=== PATIENT | female | born 1950 | race Two or more races ===

== ENCOUNTER 2017-07-30 16:24 | Emergency (ER) | payer OTHER ==
[~2017-07-30] VITALS: Ht 162.6 cm; Wt 70.3 kg
[~2017-07-30 16:24] MED LIST: ASA81 MG; CIPRO500 MG PO; CLONAZEPAM1 MG/TAB; COZAAR50 MG; FLAGYL500MG PO; LEVSIN/SL0.125 MG PO; LEVSIN/SL0.125 MG SL; LYRICA200 MG; MULTI VITAMIN1 EACH; PLAQUENIL; PRENISONA; PROTONIX40 MG PO; SYNTHROID100 MCG; ZOCOR40 MG
== END 2017-07-30 22:48 | disposition home or self-care (01) ==
LOC: ER 16:24
DX: K58.8 Other irritable bowel syndrome (principal); K57.30 Diverticulosis of large intestine without perforation or abscess without bleeding; K80.20 Calculus of gallbladder without cholecystitis without obstruction

== ENCOUNTER 2018-10-25 19:46 | Emergency (ER) | payer OTHER ==
[~2018-10-25] VITALS: Ht 162.6 cm; Wt 72.1 kg
[2018-10-25] MEDS ORDERED: LOSARTAN-HCTZ1 EAC2 (19:59)
[2018-10-25] MEDS ORDERED: SIMVASTATIN20 MG (19:59)
[2018-10-25] MEDS ORDERED: SIMBALTA (19:59)
[2018-10-25] MEDS ORDERED: SYNTHROID88 MCG (20:00)
== END 2018-10-25 23:10 | disposition home or self-care (01) ==
LOC: ER 19:46
DX: J45.901 Unspecified asthma with (acute) exacerbation (principal)

== ENCOUNTER 2019-01-30 05:54 | Day surgery (SDC) | payer OTHER ==
[~2019-01-30 05:54] MED LIST changes: +LOSARTAN-HCTZ1 EAC2; +SIMBALTA; +SIMVASTATIN20 MG; +SYNTHROID88 MCG
== END 2019-01-30 11:55 | disposition home or self-care (01) ==
LOC: AMB-ENDOS 05:54
DX: K57.30 Diverticulosis of large intestine without perforation or abscess without bleeding (principal); Z12.11 Encounter for screening for malignant neoplasm of colon; K63.89 Other specified diseases of intestine

== ENCOUNTER → 2019-04-27 | Emergency (ER) | payer OTHER ==
[~2019-04-27] VITALS: Ht 157.5 cm; Wt 65.8 kg
== END | disposition left against medical advice (07) ==
LOC: ER 19:16
DX: Z53.20 Procedure and treatment not carried out because of patient's decision for unspecified reasons (principal)

== ENCOUNTER 2019-10-29 23:41 | Emergency (ER) | payer OTHER ==
[~2019-10-29] VITALS: Ht 162.6 cm; Wt 70.3 kg
[2019-10-30] MEDS ORDERED: MOBIC15 MG PO (01:43)
[2019-10-30] MEDS ORDERED: ORPHENADRINE C100 MG PO (01:43)
[2019-10-31] MEDS ORDERED: KETO10TA2 PO (13:20)
[2019-10-31] MEDS ORDERED: ACYCLOVIR800 MG PO (13:20)
[2019-10-31] MEDS ORDERED: NEURONTIN300 MG PO (13:21)
== END 2019-10-30 02:18 | disposition home or self-care (01) ==
LOC: ER 23:41
DX: M54.5 Low back pain (principal)

== ENCOUNTER 2019-10-31 11:55 | Emergency (ER) | payer OTHER ==
[~2019-10-31] VITALS: Ht 157.5 cm; Wt 70.3 kg
[~2019-10-31 11:55] MED LIST changes: +MOBIC15 MG PO; +ORPHENADRINE C100 MG PO
[2019-10-31] MEDS ORDERED: ACYCLOVIR800 MG PO (13:20)
[2019-10-31] MEDS ORDERED: KETO10TA2 PO (13:20)
[2019-10-31] MEDS ORDERED: NEURONTIN300 MG PO (13:21)
== END 2019-10-31 13:43 | disposition home or self-care (01) ==
LOC: ER 11:55
DX: B02.8 Zoster with other complications (principal)

== ENCOUNTER 2020-03-24 06:00 | Day surgery (SDC) | payer OTHER ==
[~2020-03-24 06:00] MED LIST changes: +ACYCLOVIR800 MG PO; +ADULT LOW DOSE81 M1 PO; +CALCI; +CENTRU PO; +CYMBALTA60 MG PO; +DIOVAN320 MG; +FOLIC ACID PO; +KETO10TA2 PO; +METOTREXATE PO; +NEURONTIN300 MG PO; +SINGULAIR10 MG PO; +SYNTHROID88 MCG PO; +VALSAR PO; +ZOCOR20 MG PO
[2020-03-24] MEDS ORDERED: ULTRAM50 MG PO (10:43)
== END 2020-03-24 12:40 | disposition home or self-care (01) ==
LOC: CIR.AMB 06:00
PROVIDERS: ATTEND Surgery
DX: R15.9 Full incontinence of feces (principal); Z20.828 Contact with and (suspected) exposure to other viral communicable diseases
CPT/HCPCS: 64590; 64581; 95972; C1778; L8679

== ENCOUNTER 2020-08-06 13:53 | Inpatient (IN) | payer OTHER ==
[~2020-08-06] VITALS: Ht 162.6 cm; Wt 73.5 kg
[~2020-08-06 13:53] MED LIST changes: +ULTRAM50 MG PO
[2020-08-06] MEDS ORDERED: IRON325 MG (14:02)
[2020-08-09] MEDS ORDERED: FOLIC ACID1 MG (10:58)
[2020-08-09] MEDS ORDERED: LUMIGAN2.5 M1 (10:59)
[2020-08-09] MEDS ORDERED: PREDNISOLONE ACE5 ML (10:59)
[2020-08-09] MEDS ORDERED: REFRESH LIQUIGE15 ML (10:59)
[2020-08-09] MEDS ORDERED: SIMBRINZA 1%-0.28 ML (10:59)
[2020-08-09] MEDS ORDERED: FERROUS GLUCON240 MG (11:00)
[2020-08-09] MEDS ORDERED: PROTECT PLUS S1 EACH (11:00)
[2020-08-09] MEDS ORDERED: RESTASIS1 EACH (11:00)
[2020-08-09] MEDS ORDERED: VALSARTAN-HCTZ1 EAC3 (11:00)
[2020-08-09] MEDS ORDERED: HYDROXYCHLOROQ200 MG (11:00)
[2020-08-09] MEDS ORDERED: TIZANIDINE HCL4 M1 (11:01)
[2020-08-09] MEDS ORDERED: CENTRUM SILVER1 EAC3 (11:01)
[2020-08-09] MEDS ORDERED: [UNRECOGNIZED DRUG - OTHER] (11:01)
[2020-08-09] MEDS ORDERED: CALCIUM500 M1 (11:04)
[2020-08-09] MEDS ORDERED: METHOTREXATE2.5 MG (11:04)
[2020-08-09] MEDS ORDERED: METHOTREXA25 MG/1 M5 (11:05)
[2020-08-15] MEDS ORDERED: GABAPENTIN400 MG PO (10:31)
[2020-08-15] MEDS ORDERED: XOPENEX0.63 MG/3 IH (10:31)
== END 2020-08-15 10:53 | disposition home or self-care (01) | DRG 418 ==
LOC: ER 13:53 → SEC-K 23:52 → MEDJ 23:52 → SURG 23:52 → MEDJ 08-09 13:20
PROVIDERS: Surgery; ADMIT Internal Medicine; ATTEND Internal Medicine
PROC: BW40ZZZ Ultrasonography of Abdomen (ICD-10-PCS; 2020-08-06)
PROC: BW2110Z Computerized Tomography (CT Scan) of Abdomen and Pelvis using Low Osmolar Contrast, Unenhanced and Enhanced (ICD-10-PCS; 2020-08-07)
PROC: 02HV33Z Insertion of Infusion Device into Superior Vena Cava, Percutaneous Approach (ICD-10-PCS; 2020-08-08)
PROC: 3E0F7GC Introduction of Other Therapeutic Substance into Respiratory Tract, Via Natural or Artificial Opening (ICD-10-PCS; 2020-08-14)
PROC: 0FT44ZZ Resection of Gallbladder, Percutaneous Endoscopic Approach (ICD-10-PCS; principal; 2020-08-14 07:00)
DX: K80.10 Calculus of gallbladder with chronic cholecystitis without obstruction (principal); N39.0 Urinary tract infection, site not specified; K57.30 Diverticulosis of large intestine without perforation or abscess without bleeding; I10 Essential (primary) hypertension; G47.33 Obstructive sleep apnea (adult) (pediatric); M35.00 Sjogren syndrome, unspecified; E03.8 Other specified hypothyroidism; K29.00 Acute gastritis without bleeding; E78.00 Pure hypercholesterolemia, unspecified; R10.11 Right upper quadrant pain; Z20.822 Contact with and (suspected) exposure to COVID-19; Z88.2 Allergy status to sulfonamides; Z91.013 Allergy to seafood

== ENCOUNTER 2021-02-15 15:24 | Emergency (ER) | payer OTHER ==
[~2021-02-15] VITALS: Ht 162.6 cm; Wt 73.9 kg
[~2021-02-15 15:24] MED LIST changes: +CALCIUM500 M1; +CENTRUM SILVER1 EAC3; +FERROUS GLUCON240 MG; +FOLIC ACID1 MG; +GABAPENTIN400 MG PO; +HYDROXYCHLOROQ200 MG; +IRON325 MG; +LUMIGAN2.5 M1; +METHOTREXA25 MG/1 M5; +METHOTREXATE2.5 MG; +PREDNISOLONE ACE5 ML; +PROTECT PLUS S1 EACH; +REFRESH LIQUIGE15 ML; +RESTASIS1 EACH; +SIMBRINZA 1%-0.28 ML; +TIZANIDINE HCL4 M1; +VALSARTAN-HCTZ1 EAC3; +XOPENEX0.63 MG/3 IH; +[UNRECOGNIZED DRUG - OTHER]
[2021-02-15] MEDS ORDERED: CIPRO500 MG PO (21:59)
[2021-02-15] MEDS ORDERED: PYRIDIUM200 MG PO (21:59)
== END 2021-02-15 22:45 | disposition home or self-care (01) ==
LOC: ER 15:24
DX: N39.0 Urinary tract infection, site not specified (principal); B96.29 Other Escherichia coli [E. coli] as the cause of diseases classified elsewhere; R31.0 Gross hematuria

== ENCOUNTER 2021-04-28 08:15 | Outpatient (CLI) | payer OTHER ==
[~2021-04-28 08:15] MED LIST changes: +PYRIDIUM200 MG PO
== END 2021-04-28 09:08 | disposition home or self-care (01) ==
LOC: SONOGRAMA 08:15
PROVIDERS: ATTEND Pathology Anatomic Pathology & Clinical Pathology
DX: D34 Benign neoplasm of thyroid gland (principal)

== ENCOUNTER 2022-01-26 16:19 | Emergency (ER) | payer OTHER ==
[~2022-01-26] VITALS: Ht 162.6 cm; Wt 73.9 kg
[2022-01-26] MEDS ORDERED: AMLODIPINE-OLM1 EAC2 PO (16:42)
[2022-01-26] MEDS ORDERED: SIMVASTATIN20 MG PO (16:46)
[2022-01-26] MEDS ORDERED: DULOXETINE HCL60 MG PO (16:47)
[2022-01-26] MEDS ORDERED: HYDROXYCHLOROQ200 MG PO (16:47)
[2022-01-26] MEDS ORDERED: MONTELUKAST SOD10 MG PO (16:48)
[2022-01-26] MEDS ORDERED: ARICEPT10 MG PO (16:48)
[2022-01-26] MEDS ORDERED: LEVSIN/SL0.125 MG SL (21:19)
[2022-01-26] MEDS ORDERED: DIPHENOXYLATE-1 EACH PO (21:19)
== END 2022-01-26 21:31 | disposition home or self-care (01) ==
LOC: ER 16:19
DX: R19.7 Diarrhea, unspecified (principal); R10.32 Left lower quadrant pain; R10.31 Right lower quadrant pain; Z88.2 Allergy status to sulfonamides; Z91.013 Allergy to seafood